=== PATIENT | female | born 1960 | race Caucasian/White ===

== ENCOUNTER 2020-02-21 15:43 | Emergency (ER) | payer MEDICAID ==
[~2020-02-21] VITALS: Ht 175.3 cm; Wt 100.0 kg
[2020-02-21 15:47] VITALS: BP 114/67
[2020-02-21] MEDS ORDERED: ACETAMINOPHEN 325MG TABLET PO ONE (16:00)
== END 2020-02-21 18:20 | disposition home or self-care (01) ==
LOC: ER 16:04
DX: S82.031A Displaced transverse fracture of right patella, initial encounter for closed fracture (principal); W18.39XA Other fall on same level, initial encounter; Y93.89 Activity, other specified; Y92.89 Other specified places as the place of occurrence of the external cause
CPT/HCPCS: 73562; 99283; L1830

== ENCOUNTER 2025-03-11 09:08 | Emergency (ER) | payer MEDICAID ==
[~2025-03-11] VITALS: Ht 167.6 cm; Wt 64.0 kg
[2025-03-11 09:14] VITALS: O2SAT 100
[2025-03-11 09:57] LABS: BASOPHILS % 0.7 % (0.0-2.0); EOSINOPHILS % 0.5 % (0.0-5.0); HEMATOCRIT. 39.5 % (36.0-48.0); HEMOGLOBIN. 13.1 g/dL (12.0-16.0); LYMPHOCYTES % 15.0 % (20.0-50.0); MEAN PLATELET VOLUME 10.0 fl (7.4-10.4); MONOCYTES % 3.1 % (2.0-8.0); NEUTROPHILS % 80.7 % (40.0-76.0); PLATELET 176 x1000/uL (130-400); RED BLOOD CELL COUNT 4.12 mill/uL (4.2-5.4); RED CELL DISTRIBUTION WIDTH 14.1 % (11.6-14.6)
[2025-03-11] MEDS: TIMOLOL MALEATE 0.5% OPHTH DROPS 5ML RIGHTEYE SCH (09:59)
[2025-03-11] MEDS: ACETAMINOPHEN 325MG TABLET PO ONE (10:00)
[2025-03-11] MEDS: ACETAZOLAMIDE SODIUM 500MG/VIAL IV ONE (10:05)
[2025-03-11 10:10] LABS: CREATININE 1.0 mg/dL (0.6-1.0)
[2025-03-11 10:11] LABS: UREA NITROGEN BLOOD 16.0 mg/dL (9-23)
[2025-03-11] MEDS ORDERED: DORZ10DR8 RIGHTEYE (11:09)
[2025-03-11] MEDS ORDERED: BIMA2.5D4 RIGHTEYE (11:09)
[2025-03-11] MEDS ORDERED: PRED5DRO22 RIGHTEYE (11:09)
[2025-03-11] MEDS ORDERED: TIMO5DRO40 RIGHTEYE (11:09)
[2025-03-11] MEDS ORDERED: BRIM15DR8 RIGHTEYE (11:09)
[2025-03-11] MEDS ORDERED: ACET250T26 MT (11:09)
[2025-03-11] MEDS: KETOROLAC 15MG/ML VIAL IV ONE (11:33)
[2025-03-11] MEDS: ACETAMINOPHEN 1000MG/100ML 100 ML IV ONE (11:57)
[2025-03-11] MEDS: MEPERIDINE HCL/PF 25MG/ML CPJ IV ONE (11:57)
[2025-03-11 13:05] VITALS: BP 105/50; PULSE 60; RESP 15; TEMP 36.8; O2SAT 100
== END 2025-03-11 15:09 | disposition home or self-care (01) ==
LOC: ER 09:08 → CANBEDREQ 12:09 → ER 15:09
DX: H40.9 Unspecified glaucoma (principal); H26.9 Unspecified cataract; H20.9 Unspecified iridocyclitis; Z79.899 Other long term (current) drug therapy; Z88.5 Allergy status to narcotic agent
CPT/HCPCS: 80048; 85025; 36415; 70450; 96365; 96375; 99285; J1885; J1120; J2175; Z7610; J0131

== ENCOUNTER 2025-04-05 14:08 | Inpatient (IN) | payer MEDICAID ==
[~2025-04-05] VITALS: Ht 172.7 cm; Wt 57.2 kg
[~2025-04-05 14:08] MED LIST: ACET250T26 MT; BIMA2.5D4 RIGHTEYE; BRIM15DR8 RIGHTEYE; DORZ10DR8 RIGHTEYE; PRED5DRO22 RIGHTEYE; TIMO5DRO40 RIGHTEYE
[2025-04-05 14:13] VITALS: O2SAT 98
[2025-04-05] MEDS ORDERED: TIMOLOL MALEATE 0.5% OPHTH DROPS 5ML RIGHTEYE SCH (14:45)
[2025-04-05 15:07] LABS: BASOPHILS % 0.7 % (0.0-2.0); EOSINOPHILS % 2.1 % (0.0-5.0); HEMATOCRIT. 36.5 % (36.0-48.0); HEMOGLOBIN. 12.3 g/dL (12.0-16.0); LYMPHOCYTES % 28.4 % (20.0-50.0); MEAN PLATELET VOLUME 10.5 fl (7.4-10.4); MONOCYTES % 4.5 % (2.0-8.0); NEUTROPHILS % 64.3 % (40.0-76.0); PLATELET 152 x1000/uL (130-400); RED BLOOD CELL COUNT 3.80 mill/uL (4.2-5.4); RED CELL DISTRIBUTION WIDTH 14.0 % (11.6-14.6)
[2025-04-05 15:17] LABS: INR 1.1
[2025-04-05 15:21] LABS: CREATININE 0.9 mg/dL (0.6-1.0); UREA NITROGEN BLOOD 15 mg/dL (9-23)
[2025-04-05 15:22] LABS: ASPARTATE AMINOTRANSFERASE 21 IU/L (<34)
[2025-04-05 15:23] LABS: BILIRUBIN DIRECT 0.6 mg/dL (<=3.0); BILIRUBIN TOTAL 1.9 mg/dL (0.1-1.0); PROTEIN TOTAL 6.8 g/dL (6.0-8.3)
[2025-04-05] MEDS: TETRACAINE 0.5% OPHTH DROPS 4ML BOTHEYE ONE (15:35)
[2025-04-05] MEDS: SODIUM CHLORIDE 0.9% 1,000 ML IV ONE (15:35)
[2025-04-05] MEDS: ACETAZOLAMIDE 250MG TABLET PO ONE (15:35)
[2025-04-05] MEDS: MEPERIDINE HCL/PF 25MG/ML CPJ IV ONE (16:32)
[2025-04-05] MEDS: DORZOLAM/TIMOLOL 2%/0.5% OPHTH DROPS 10ML RIGHTEYE SCH (16:35)
[2025-04-05] MEDS: PREDNISOLONE ACETATE 1% OPHTH DROPS 5ML RIGHTEYE SCH (18:21)
[2025-04-05] MEDS ORDERED: DORZOLAMIDE 2% OPHTH 10 ML BOTTLE RIGHTEYE SCH (22:00)
[2025-04-05] MEDS: BRIMONIDINE 0.2% OPHTH DROPS 5ML RIGHTEYE SCH (22:45)
[2025-04-05] MEDS: DEXT 5%/0.45% NACL 1000ML 1,000 ML IV SCH (23:00)
[2025-04-05] MEDS ORDERED: ACETAMINOPHEN 325MG TABLET PO PRN (23:00)
[2025-04-05] MEDS ORDERED: ZOLPIDEM TARTRATE 5MG TABLET PO PRN (23:00)
[2025-04-05] MEDS ORDERED: ONDANSETRON HCL 4MG/2ML INJ IV PRN (23:00)
[2025-04-05] MEDS ORDERED: MAGNESIUM/ALUMINUM HYDROXIDE/SIMETHICONE 30ML UDC PO PRN (23:00)
[2025-04-05] MEDS ORDERED: HYDROCODONE/ACETAMINOPHEN 5/325MG TABLET PO PRN (23:00)
[2025-04-05] MEDS ORDERED: CLONIDINE 0.1MG TABLET PO PRN (23:00)
[2025-04-05 23:30] VITALS: BP 99/48; PULSE 45; RESP 16; TEMP 36.5848
[2025-04-05] MEDS ORDERED: NALOXONE HCL 0.4MG/ML VIAL IV PRN (23:45)
[2025-04-05] MEDS: IOHEXOL-350 50 ML BOTTLE ONE (23:49)
[2025-04-06 08:00] VITALS: BP 98/59; PULSE 60; RESP 18; TEMP 36.5; O2SAT 100
[2025-04-06] MEDS: BRIMONIDINE 0.2% OPHTH DROPS 5ML RIGHTEYE SCH (09:00)
[2025-04-06] MEDS: TIMOLOL MALEATE 0.5% OPHTH DROPS 5ML RIGHTEYE SCH (09:00)
[2025-04-06] MEDS: DORZOLAMIDE 2% OPHTH 10 ML BOTTLE RIGHTEYE SCH (09:00)
[2025-04-06] MEDS: PREDNISOLONE ACETATE 1% OPHTH DROPS 5ML RIGHTEYE SCH (09:59)
[2025-04-06] MEDS: PANTOPRAZOLE SODIUM 40 MG/VIAL IV SCH (09:59)
[2025-04-06] MEDS: ENOXAPARIN 40MG/0.4ML SYR SUBCUT SCH (09:59)
[2025-04-06 12:00] VITALS: BP 91/50; PULSE 50; RESP 18; TEMP 36.5; O2SAT 100
[2025-04-06 12:00] LABS: BASOPHILS % 0.7 % (0.0-2.0); EOSINOPHILS % 3.7 % (0.0-5.0); HEMATOCRIT. 35.9 % (36.0-48.0); HEMOGLOBIN. 11.8 g/dL (12.0-16.0); LYMPHOCYTES % 26.3 % (20.0-50.0); MEAN PLATELET VOLUME 10.5 fl (7.4-10.4); MONOCYTES % 5.8 % (2.0-8.0); NEUTROPHILS % 63.5 % (40.0-76.0); PLATELET 134 x1000/uL (130-400); RED BLOOD CELL COUNT 3.73 mill/uL (4.2-5.4); RED CELL DISTRIBUTION WIDTH 13.9 % (11.6-14.6)
[2025-04-06 12:21] LABS: CREATININE 0.9 mg/dL (0.6-1.0); UREA NITROGEN BLOOD 10 mg/dL (9-23)
[2025-04-06] MEDS ORDERED: DORZ10DR8 RIGHTEYE (13:58)
[2025-04-06] MEDS ORDERED: ACET250T26 MT (13:58)
[2025-04-06] MEDS ORDERED: TIMO5DRO40 RIGHTEYE (13:58)
[2025-04-06] MEDS ORDERED: BRIM15DR8 RIGHTEYE (13:58)
[2025-04-06] MEDS ORDERED: BIMA2.5D4 RIGHTEYE (13:58)
[2025-04-06] MEDS ORDERED: PRED5DRO22 RIGHTEYE (13:58)
[2025-04-06] MEDS: ACETAZOLAMIDE 250MG TABLET PO SCH (14:34)
[2025-04-06] MEDS: MAGNESIUM 2 G PREMIX 50 ML IV SCH (14:34)
[2025-04-06 16:00] VITALS: BP 114/75; PULSE 54; RESP 18; TEMP 36.4; O2SAT 96
[2025-04-06 20:00] VITALS: BP 101/57; PULSE 52; RESP 17; TEMP 36.6; O2SAT 98
[2025-04-07] VITALS: BP 125/84; PULSE 57; RESP 16; TEMP 36.7; O2SAT 98
[2025-04-07] MEDS: LATANOPROST 0.005% OPHTH DROPS 2.5ML RIGHTEYE SCH (00:10)
[2025-04-07 04:00] VITALS: BP 111/56; PULSE 51; RESP 16; TEMP 36.6; O2SAT 97
[2025-04-07 06:47] LABS: BASOPHILS % 0.7 % (0.0-2.0); EOSINOPHILS % 5.2 % (0.0-5.0); HEMATOCRIT. 34.1 % (36.0-48.0); HEMOGLOBIN. 11.3 g/dL (12.0-16.0); LYMPHOCYTES % 34.1 % (20.0-50.0); MEAN PLATELET VOLUME 10.4 fl (7.4-10.4); MONOCYTES % 5.0 % (2.0-8.0); NEUTROPHILS % 55.0 % (40.0-76.0); PLATELET 121 x1000/uL (130-400); RED BLOOD CELL COUNT 3.55 mill/uL (4.2-5.4); RED CELL DISTRIBUTION WIDTH 13.7 % (11.6-14.6)
[2025-04-07 07:03] LABS: CREATININE 1.0 mg/dL (0.6-1.0); UREA NITROGEN BLOOD 11 mg/dL (9-23)
[2025-04-07 08:00] VITALS: BP 112/55; PULSE 79; RESP 17; TEMP 36.4; O2SAT 100
[2025-04-07] MEDS: POTASSIUM CHLORIDE 20MEQ TABLET SR PO SCH (13:15)
[2025-04-07 14:07] VITALS: BP 112/55; PULSE 79; RESP 17; TEMP 97.7
== END 2025-04-07 16:10 | disposition home or self-care (01) | DRG 82 ==
LOC: ER 14:08 → EDBEDREQ 20:06 → EDBEDREQTM 20:06 → ENRESERV 23:06 → 7EST 23:20
PROVIDERS: ADMIT Internal Medicine; ATTEND Internal Medicine
DX: H40.9 Unspecified glaucoma (principal); K83.09 Other cholangitis; K80.20 Calculus of gallbladder without cholecystitis without obstruction; E78.5 Hyperlipidemia, unspecified; I10 Essential (primary) hypertension; Z79.899 Other long term (current) drug therapy; Z88.5 Allergy status to narcotic agent
CPT/HCPCS: 36415; 70496; 70498; 76700; 80048; 80076; 83735; 85025; 93970; 96360; 96361; 99285; A4606; J1650; J2175; J2470; J3475; J7030; Q9967